=== PATIENT | male | born 1990 | race Two or more races ===

== ENCOUNTER 2016-07-10 00:23 | Emergency (ER) | payer BC ==
[~2016-07-10] VITALS: Ht 193 cm; Wt 83.6 kg
[~2016-07-10 00:23] MED LIST: MOTRIN600 MG PO; VICODIN,LORT1 TABLET PO
[2016-07-10] MEDS ORDERED: MEDROL DOSEPAK4 MG PO (00:41)
[2016-07-10] MEDS ORDERED: AKWA TEARS OIN3.5 GM RIGHT EYE (00:45)
[2016-07-10] MEDS ORDERED: COMPLERA TABLE1 EACH PO (01:08)
[2016-07-10] MEDS ORDERED: ISENTRESS400 MG PO (01:09)
[2016-07-10 01:20] VITALS: BP 138/105
== END 2016-07-10 01:20 | disposition home or self-care (01) ==
LOC: EME 00:23
DX: G51.0 Bell's palsy (principal); Z21 Asymptomatic human immunodeficiency virus [HIV] infection status; F17.200 Nicotine dependence, unspecified, uncomplicated
CPT/HCPCS: 99281; 99284; J7512